=== PATIENT | male | born 1995 | race Caucasian/White ===

== ENCOUNTER → 2020-09-30 | Outpatient (CLI) | payer OTHER ==
--- NOTE | 2020-09-30 15:49 | REP ---
INDICATION: VENOUS INSUFFIENCY COMPARISON: None. TECHNIQUE: Sutton scale and color Doppler evaluation bilateral lower extremities using linear high frequency transducer including reflux evaluation. FINDINGS: Ultrasound examination of the right and left lower extremity deep venous structures from the common femoral vein to the popliteal vein demonstrates normal compressibility flow and wave patterns in response to respiration and augmentation. There is no evidence for deep venous thrombosis. Right lower extremity demonstrates reflux through the deep venous system (common femoral vein and proximal to mid superficial femoral vein) and superficial system. Proximal greater saphenous vein measures 7.8 mm diameter with reflux duration 8 seconds; mid greater saphenous vein measures 5.7 mm diameter with reflux duration 8.2 seconds; distal greater saphenous vein at the knee measures 7.9 mm diameter with reflux duration 4.8 seconds. Left lower extremity demonstrates reflux through the entire deep venous system and superficial system. Proximal greater saphenous vein measures 11 mm diameter with reflux duration 5.2nd; mid greater saphenous vein measures 9.6 mm diameter with reflux duration 5.7 seconds; distal greater saphenous vein at the knee measures 8.1 mm diameter with reflux duration 5.0 seconds along with reflux through the lesser saphenous vein measuring 11 mm diameter with reflux duration 1.8 seconds. IMPRESSION: No evidence for deep venous thrombosis. Bilateral reflux disease. <Electronically signed by Landen Clark > 09/30/20 1651
== END ==
LOC: M RAD 08:56
PROVIDERS: ATTEND Surgery
DX: I83.813 Varicose veins of bilateral lower extremities with pain (principal)